=== PATIENT | female | born 1935 | race Caucasian/White ===

== ENCOUNTER 2018-11-13 14:53 | Emergency (ER) | payer MEDICARE, OTHER ==
[~2018-11-13] VITALS: Ht 154.9 cm; Wt 73.0 kg
[~2018-11-13 14:53] MED LIST: CLOP75TA15 PO; LEVO75TA PO; LISI1TAB29 PO; VAL5T PO
--- NOTE | 2018-11-13 15:16 | NUR ---
pt amb with slow steady gait from lobby to room with min assist, Eulalia BARROW at bedside to eval pt
--- NOTE | 2018-11-13 15:58 | NUR ---
pt states fell three weeks ago onto left side with bruise to buttock - noted yellow area to left lower buttock states left side pain pascale her to er today.
[2018-11-13 16:08] LABS: BASOPHILS % (AUTO) 0.5 % (0-1); EOSINOPHILS # (AUTO) 0.2 X10'3 (0-0.9); EOSINOPHILS % (AUTO) 3.1 % (0-6); HEMATOCRIT 40.5 % (35.0-45.0); HEMOGLOBIN 13.5 g/dl (12.0-16.0); LYMPHOCYTES # (AUTO) 2.3 X10'3 (1.1-4.8); LYMPHOCYTES % (AUTO) 37.1 % (21-51); MEAN CORPUSCULAR HEMOGLOBIN 30.8 PG (27.0-31.0); MEAN CORPUSCULAR HGB CONC 33.4 g/dL (33.0-36.5); MEAN CORPUSCULAR VOLUME 92.1 FL (78-98); MEAN PLATELET VOLUME 7.8 FL (7.4-10.4); MONOCYTES # (AUTO) 0.5 X10'3 (0-0.9); MONOCYTES % (AUTO) 8.1 % (2-12); NEUTROPHILS # (AUTO) 3.2 X10'3 (1.8-7.7); NEUTROPHILS % (AUTO) 51.2 % (42-75); PLATELET COUNT 203 X10'3 (140-440); RED CELL DISTRIBUTION WIDTH 13.4 % (11.5-14.5); WHITE BLOOD COUNT 6.2 X10'3 (4.5-11.0)
[2018-11-13 16:20] LABS: ALANINE AMINOTRANSFERASE 51 U/L (12-78); ALBUMIN 3.7 G/DL (3.4-5.0); ALBUMIN/GLOBULIN RATIO 1.2 (1.1-1.5); ALKALINE PHOSPHATASE 42 IU/L (46-116); ANION GAP 9 (8-16); ASPARTATE AMINO TRANSFERASE 30 U/L (10-37); BILIRUBIN,TOTAL 0.4 MG/DL (0.1-1.0); BLOOD UREA NITROGEN 20 MG/DL (7-18); BUN/CREATININE RATIO 20.6 (6.6-38.0); CALCIUM 8.6 MG/DL (8.5-10.1); CHLORIDE 106 MMOL/L (99-107); CREATININE 0.97 MG/DL (0.40-0.90); GLUCOSE 104 MG/DL (70-104); POTASSIUM 3.6 MMOL/L (3.5-5.1); SODIUM 141 MMOL/L (135-145); TOTAL CARBON DIOXIDE 25.8 MMOL/L (24-32); TOTAL PROTEIN 6.8 G/DL (6.4-8.2); eGFR 55 ML/MIN
[2018-11-13] MEDS ORDERED: traMADol 50MG tablet PO ONE (17:00)
[2018-11-13] MEDS ORDERED: TRAM50TA2 PO (17:13)
[2018-11-13 17:16] VITALS: BP 125/59
== END 2018-11-13 17:22 | disposition home or self-care (01) ==
LOC: ER 14:54
DX: M54.5 Low back pain (principal); I10 Essential (primary) hypertension; E03.9 Hypothyroidism, unspecified; M19.90 Unspecified osteoarthritis, unspecified site; Z98.890 Other specified postprocedural states; Z88.6 Allergy status to analgesic agent; Z88.8 Allergy status to other drugs, medicaments and biological substances; Z79.899 Other long term (current) drug therapy; Z86.73 Personal history of transient ischemic attack (TIA), and cerebral infarction without residual deficits
CPT/HCPCS: 36415; 80053; 85025; 99283; 99284

== ENCOUNTER 2019-08-04 19:33 | Inpatient (IN) | payer MEDICARE, OTHER ==
[~2019-08-04] VITALS: Ht 157.5 cm; Wt 66.2 kg
[2019-08-04] MEDS ORDERED: TETanus/Pertussis (Acell)/Diphther VAC/PF (Tdap-Adult) 0.5ml syringe IMVAC ONE (19:50)
[2019-08-04] MEDS ORDERED: LIDOcaine 1% W/epiNEPHrine 1:200,000 10ml vial IJ ONE (19:50)
--- NOTE | 2019-08-04 20:09 | NUR ---
pt in CT
--- NOTE | 2019-08-04 20:30 | NUR ---
pt back from CT and xray, lac to rt side of forehead is oozing blood, pressure applied Desiree Mendes, friend, , call her for ride home
[2019-08-04 20:35] LABS: ALANINE AMINOTRANSFERASE 34 U/L (12-78); ALBUMIN 3.7 G/DL (3.4-5.0); ALKALINE PHOSPHATASE 64 IU/L (46-116); ASPARTATE AMINO TRANSFERASE 23 U/L (10-37); BILIRUBIN,TOTAL 0.2 MG/DL (0.1-1.0); BLOOD UREA NITROGEN 25 MG/DL (7-18); BUN/CREATININE RATIO 26.6 (6.6-38.0); CALCIUM 9.6 MG/DL (8.5-10.1); CREATININE 0.94 MG/DL (0.40-0.90); GLUCOSE 127 MG/DL (70-104); TOTAL CARBON DIOXIDE 30.1 MMOL/L (24-32); TOTAL PROTEIN 7.3 G/DL (6.4-8.2); eGFR 57 ML/MIN
[2019-08-04] MEDS ORDERED: traMADol 50MG tablet PO ONE (20:40)
[2019-08-04 20:44] LABS: ANION GAP 4 (8-16); BASOPHILS # (AUTO) 0.1 X10'3 (0-0.2); BASOPHILS % (AUTO) 0.7 % (0-1); CHLORIDE 104 MMOL/L (99-107); EOSINOPHILS # (AUTO) 0.2 X10'3 (0-0.9); EOSINOPHILS % (AUTO) 2.8 % (0-6); HEMATOCRIT 42.4 % (35.0-45.0); LYMPHOCYTES # (AUTO) 1.6 X10'3 (1.1-4.8); LYMPHOCYTES % (AUTO) 21.2 % (21-51); MEAN CORPUSCULAR HEMOGLOBIN 30.1 PG (27.0-31.0); MEAN CORPUSCULAR HGB CONC 33.1 g/dL (33.0-36.5); MEAN CORPUSCULAR VOLUME 91.1 FL (78-98); MEAN PLATELET VOLUME 8.8 FL (7.4-10.4); MONOCYTES # (AUTO) 0.4 X10'3 (0-0.9); MONOCYTES % (AUTO) 5.9 % (2-12); NEUTROPHILS # (AUTO) 5.2 X10'3 (1.8-7.7); NEUTROPHILS % (AUTO) 69.4 % (42-75); PLATELET COUNT 279 X10'3 (140-440); POTASSIUM 3.3 MMOL/L (3.5-5.1); RED BLOOD COUNT 4.66 X10'6 (4.20-5.60); RED CELL DISTRIBUTION WIDTH 13.9 % (11.5-14.5); SODIUM 138 MMOL/L (135-145); WHITE BLOOD COUNT 7.5 X10'3 (4.5-11.0)
[2019-08-04] MEDS ORDERED: temazepam 15mg capsule PO PRN (21:00)
[2019-08-04] MEDS ORDERED: DOXE10CA2 PO (21:29)
[2019-08-04] MEDS ORDERED: LEVO50TA8 PO (21:29)
[2019-08-04] MEDS ORDERED: morphine 4 MG/ML inj SYRINge IM ONE (21:50)
[2019-08-04] MEDS ORDERED: ondansetron 4mg rapidly disintigrating tab PO ONE (21:50)
[2019-08-04] MEDS ORDERED: potassium CL 10mEq/100ml bag 100 ML IV PRN ×2 (22:25)
[2019-08-04] MEDS ORDERED: magnesium Cl slow-release 64mg tablet PO PRN (22:25)
[2019-08-04] MEDS ORDERED: magnesium 4gm in 100ml NS 100 ML IV PRN (22:25)
[2019-08-04] MEDS ORDERED: potassium Cl 20 mEq SR tablet PO PRN ×2 (22:25)
[2019-08-04] MEDS ORDERED: morphine 2 MG/ML inj. syringe IV PRN (22:25)
[2019-08-04] MEDS ORDERED: magnesium 2GM in 50ml NS 50 ML IV PRN (22:25)
[2019-08-04 22:42] LABS: CLARITY,URINE SLIGHTLY CLOUDY (Clear); COLOR,URINE YELLOW (Yellow); GLUCOSE, URINE NEGATIVE (Neg); KETONES,URINE NEGATIVE (Neg); LEUKOCYTE ESTERASE ,URINE SMALL (Neg); NITRITES, URINE NEGATIVE (Neg); OCCULT BLOOD,URINE NEGATIVE (Neg); PROTEIN,URINE NEGATIVE (Neg); UROBILINOGEN,URINE 0.2 E.U/dL (0.2-1.0)
[2019-08-04 22:46] LABS: UA COLLECTION TYPE OTHER
[2019-08-04 22:54] LABS: BACTERIA,URINE 3+ /HPF (Neg); RBC,URINE 0-2 /HPF (0-2); SQUAMOUS EPITHELIAL CELL,UR MODERATE /LPF (FEW); URINE AMPHETAMINE SCREEN NEGATIVE (Neg); URINE BARBITUATE SCREEN NEGATIVE (Neg); URINE BENZODIAZEPINES SCREEN POSITIVE (Neg); URINE CANNABINOID SCREEN NEGATIVE (Neg); URINE COCAINE SCREEN NEGATIVE (Neg); URINE METHADONE SCREEN NEGATIVE (Neg); URINE OPIATE SCREEN POSITIVE (Neg); URINE PHENCYCLIDINE SCREEN NEGATIVE (Neg)
[2019-08-04 22:56] LABS: MUCUS STRANDS NONE SEEN /LPF (Neg); WBC CLUMPS,URINE FEW /HPF (NEGATIVE)
[2019-08-04] MEDS: normal saline 1000ml 1,000 ML IV SCH (23:34)
[2019-08-05] VITALS: BP 124/70
[2019-08-05 00:05] VITALS: BP_SYST 124; BP_SYST 143; BP_SYST 145; BP_DIAS 70; BP_DIAS 85; BP_DIAS 90
[2019-08-05] MEDS: ondansetron/PF 4mg/2ml inj IV PRN ×2 (01:38→08:22)
[2019-08-05] MEDS: morphine 2 MG/ML inj. syringe IV PRN ×4 (01:38→21:02)
[2019-08-05 04:46] LABS: BASOPHILS # (AUTO) 0.1 X10'3 (0-0.2); BASOPHILS % (AUTO) 0.7 % (0-1); EOSINOPHILS # (AUTO) 0.4 X10'3 (0-0.9); EOSINOPHILS % (AUTO) 3.9 % (0-6); HEMATOCRIT 38.2 % (35.0-45.0); HEMOGLOBIN 12.6 g/dl (12.0-16.0); LYMPHOCYTES # (AUTO) 2.7 X10'3 (1.1-4.8); LYMPHOCYTES % (AUTO) 29.4 % (21-51); MEAN CORPUSCULAR HEMOGLOBIN 30.3 PG (27.0-31.0); MEAN CORPUSCULAR HGB CONC 32.9 g/dL (33.0-36.5); MEAN PLATELET VOLUME 8.4 FL (7.4-10.4); MONOCYTES # (AUTO) 0.8 X10'3 (0-0.9); MONOCYTES % (AUTO) 8.6 % (2-12); NEUTROPHILS # (AUTO) 5.2 X10'3 (1.8-7.7); NEUTROPHILS % (AUTO) 57.4 % (42-75); PLATELET COUNT 242 X10'3 (140-440); RED BLOOD COUNT 4.16 X10'6 (4.20-5.60); WHITE BLOOD COUNT 9.1 X10'3 (4.5-11.0)
[2019-08-05 04:59] LABS: ALANINE AMINOTRANSFERASE 31 U/L (12-78); ALBUMIN 3.2 G/DL (3.4-5.0); ALKALINE PHOSPHATASE 52 IU/L (46-116); ANION GAP 7 (8-16); ASPARTATE AMINO TRANSFERASE 23 U/L (10-37); BILIRUBIN,TOTAL 0.3 MG/DL (0.1-1.0); BLOOD UREA NITROGEN 20 MG/DL (7-18); CALCIUM 8.7 MG/DL (8.5-10.1); CHLORIDE 106 MMOL/L (99-107); CREATININE 0.91 MG/DL (0.40-0.90); GLUCOSE 130 MG/DL (70-104); MAGNESIUM 1.6 MG/DL (1.5-2.4); POTASSIUM 3.7 MMOL/L (3.5-5.1); SODIUM 142 MMOL/L (135-145); TOTAL CARBON DIOXIDE 29.2 MMOL/L (24-32); TOTAL PROTEIN 6.3 G/DL (6.4-8.2); eGFR 59 ML/MIN
--- NOTE | 2019-08-05 06:14 | NUR ---
Problems reprioritized. Patient report given, questions answered & plan of care reviewed with Ayla LYNN. Addendum: 08/05/19 at 0619 by Nohelia James RN Problems reprioritized. Patient report given, questions answered & plan of care reviewed with Queenie LYNN.
[2019-08-05 07:00] VITALS: BP 104/52
[2019-08-05] MEDS: clopidogrel 75mg tablet PO SCH (08:00)
[2019-08-05] MEDS: K and/or MAG REPLACEMENT MC SCH ×2 (08:00→19:00)
[2019-08-05] MEDS: levoTHYROXINE 25mcg tablet PO SCH (08:01)
[2019-08-05] MEDS: docusate sod 100mg capsule PO SCH ×2 (08:01→19:03)
[2019-08-05] MEDS: lisinopril 20mg tablet PO SCH (08:03)
[2019-08-05] MEDS: heparin, porcine 5000 units/ml vial SQ SCH ×2 (08:04→19:03)
[2019-08-05] MEDS: CefTRIAXone/D5W-Rocephin 1gm 50 ML IV SCH (11:52)
[2019-08-05 12:00] VITALS: BP 102/51
[2019-08-05] MEDS: normal saline 1000ml 1,000 ML IV SCH (13:23)
[2019-08-05 18:00] VITALS: BP 105/55
--- NOTE | 2019-08-05 18:23 | NUR ---
Patient in room [facility]. I have received report from Queenie LYNN and had the opportunity to ask questions and assume patient care.
[2019-08-06] VITALS: BP 118/69
[2019-08-06] MEDS: morphine 2 MG/ML inj. syringe IV PRN ×3 (02:10→21:18)
[2019-08-06] MEDS: normal saline 1000ml 1,000 ML IV SCH ×2 (02:59→16:19)
--- NOTE | 2019-08-06 06:15 | NUR ---
Problems reprioritized. Patient report given, questions answered & plan of care reviewed with Queenie LYNN.
[2019-08-06 08:00] VITALS: BP 117/70
[2019-08-06] MEDS: clopidogrel 75mg tablet PO SCH ×2 (08:00→08:42)
[2019-08-06] MEDS: K and/or MAG REPLACEMENT MC SCH ×2 (08:00→20:00)
[2019-08-06 08:17] LABS: BASOPHILS % (AUTO) 0.5 % (0-1); EOSINOPHILS # (AUTO) 0.3 X10'3 (0-0.9); EOSINOPHILS % (AUTO) 4.8 % (0-6); HEMOGLOBIN 12.5 g/dl (12.0-16.0); LYMPHOCYTES # (AUTO) 1.8 X10'3 (1.1-4.8); LYMPHOCYTES % (AUTO) 24.9 % (21-51); MEAN CORPUSCULAR HEMOGLOBIN 30.1 PG (27.0-31.0); MEAN CORPUSCULAR HGB CONC 32.9 g/dL (33.0-36.5); MEAN CORPUSCULAR VOLUME 91.4 FL (78-98); MEAN PLATELET VOLUME 8.4 FL (7.4-10.4); MONOCYTES # (AUTO) 0.5 X10'3 (0-0.9); MONOCYTES % (AUTO) 7.1 % (2-12); NEUTROPHILS # (AUTO) 4.6 X10'3 (1.8-7.7); NEUTROPHILS % (AUTO) 62.7 % (42-75); PLATELET COUNT 221 X10'3 (140-440); RED BLOOD COUNT 4.16 X10'6 (4.20-5.60); RED CELL DISTRIBUTION WIDTH 13.4 % (11.5-14.5); WHITE BLOOD COUNT 7.3 X10'3 (4.5-11.0)
[2019-08-06] MEDS: levoTHYROXINE 25mcg tablet PO SCH (08:42)
[2019-08-06] MEDS: heparin, porcine 5000 units/ml vial SQ SCH ×2 (08:48→21:14)
[2019-08-06] MEDS: lisinopril 20mg tablet PO SCH (08:48)
[2019-08-06] MEDS: CefTRIAXone/D5W-Rocephin 1gm 50 ML IV SCH (08:49)
[2019-08-06] MEDS: docusate sod 100mg capsule PO SCH ×2 (08:49→21:18)
[2019-08-06 08:57] LABS: ALANINE AMINOTRANSFERASE 29 U/L (12-78); ALBUMIN 3.1 G/DL (3.4-5.0); ALBUMIN/GLOBULIN RATIO 0.9 (1.1-1.5); ALKALINE PHOSPHATASE 61 IU/L (46-116); ANION GAP 8 (8-16); ASPARTATE AMINO TRANSFERASE 21 U/L (10-37); BILIRUBIN,TOTAL 0.3 MG/DL (0.1-1.0); BLOOD UREA NITROGEN 16 MG/DL (7-18); BUN/CREATININE RATIO 18.4 (6.6-38.0); CALCIUM 8.1 MG/DL (8.5-10.1); CHLORIDE 106 MMOL/L (99-107); CREATININE 0.87 MG/DL (0.40-0.90); GLUCOSE 144 MG/DL (70-104); MAGNESIUM 1.5 MG/DL (1.5-2.4); POTASSIUM 4.2 MMOL/L (3.5-5.1); SODIUM 139 MMOL/L (135-145); TOTAL CARBON DIOXIDE 24.7 MMOL/L (24-32); TOTAL PROTEIN 6.4 G/DL (6.4-8.2); eGFR 62 ML/MIN
[2019-08-06 11:00] VITALS: BP 128/63
[2019-08-06] MEDS: cephalexin 500mg capsule PO SCH (16:16)
--- NOTE | 2019-08-06 18:30 | NUR ---
Patient in room [facility]. I have received report from MAGY and had the opportunity to ask questions and assume patient care. ASSUMED CARE OF PT WITH RN STUDENT JONA Pinto
[2019-08-06 20:00] VITALS: BP 118/62
[2019-08-07] VITALS: BP 150/76
[2019-08-07] MEDS: cephalexin 500mg capsule PO SCH ×3 (00:28→15:54)
--- NOTE | 2019-08-07 03:35 | NUR ---
Student documentation: I have reviewed and agree with all interventions, assessments performed and documented by JONA Bellamy Medication Administration: For this medication-pass time frame, all medication were reviewed, dispensed, administered and documented per hospital policy by JONA Pinto
[2019-08-07] MEDS ORDERED: HYDROcodone/acetaminophen 5mg/325mg tablet PO ONE (06:00)
--- NOTE | 2019-08-07 06:27 | NUR ---
Problems reprioritized. Patient report given, questions answered & plan of care reviewed with KATELIN.
[2019-08-07] MEDS: normal saline 1000ml 1,000 ML IV SCH (07:37)
[2019-08-07 07:40] VITALS: BP 143/68
[2019-08-07] MEDS: lisinopril 20mg tablet PO SCH (07:43)
[2019-08-07] MEDS: docusate sod 100mg capsule PO SCH ×2 (07:43→21:01)
[2019-08-07] MEDS: levoTHYROXINE 25mcg tablet PO SCH (07:43)
[2019-08-07] MEDS: heparin, porcine 5000 units/ml vial SQ SCH ×2 (07:44→21:01)
[2019-08-07] MEDS: K and/or MAG REPLACEMENT MC SCH ×2 (07:46→20:00)
[2019-08-07 08:06] LABS: BASOPHILS # (AUTO) 0.1 X10'3 (0-0.2); EOSINOPHILS # (AUTO) 0.4 X10'3 (0-0.9); EOSINOPHILS % (AUTO) 7.5 % (0-6); HEMATOCRIT 35.2 % (35.0-45.0); HEMOGLOBIN 11.8 g/dl (12.0-16.0); LYMPHOCYTES # (AUTO) 1.9 X10'3 (1.1-4.8); LYMPHOCYTES % (AUTO) 33.2 % (21-51); MEAN CORPUSCULAR HEMOGLOBIN 30.5 PG (27.0-31.0); MEAN CORPUSCULAR HGB CONC 33.5 g/dL (33.0-36.5); MEAN PLATELET VOLUME 8.7 FL (7.4-10.4); MONOCYTES # (AUTO) 0.5 X10'3 (0-0.9); MONOCYTES % (AUTO) 8.7 % (2-12); NEUTROPHILS # (AUTO) 2.8 X10'3 (1.8-7.7); NEUTROPHILS % (AUTO) 49.6 % (42-75); PLATELET COUNT 205 X10'3 (140-440); RED BLOOD COUNT 3.87 X10'6 (4.20-5.60); RED CELL DISTRIBUTION WIDTH 13.5 % (11.5-14.5); WHITE BLOOD COUNT 5.6 X10'3 (4.5-11.0)
[2019-08-07 08:28] LABS: ALANINE AMINOTRANSFERASE 28 U/L (12-78); ALBUMIN 2.8 G/DL (3.4-5.0); ALBUMIN/GLOBULIN RATIO 0.9 (1.1-1.5); ALKALINE PHOSPHATASE 55 IU/L (46-116); ANION GAP 6 (8-16); ASPARTATE AMINO TRANSFERASE 21 U/L (10-37); BILIRUBIN,TOTAL 0.2 MG/DL (0.1-1.0); BLOOD UREA NITROGEN 15 MG/DL (7-18); BUN/CREATININE RATIO 17.2 (6.6-38.0); CHLORIDE 109 MMOL/L (99-107); CREATININE 0.87 MG/DL (0.40-0.90); GLUCOSE 126 MG/DL (70-104); MAGNESIUM 1.8 MG/DL (1.5-2.4); POTASSIUM 4.2 MMOL/L (3.5-5.1); SODIUM 143 MMOL/L (135-145); TOTAL CARBON DIOXIDE 27.6 MMOL/L (24-32); eGFR 62 ML/MIN
[2019-08-07 11:00] VITALS: BP 127/69
--- NOTE | 2019-08-07 15:59 | NUR ---
PAGER ID: [phone] MESSAGE: Daniel Grigsby [id number]: patient feeling constipated. has no PRNs would you like a milk of mag or stool softner of some kind? thanks saranya, [phone]
[2019-08-07] MEDS: magnesium hydroxide 30ml (MOM) UD suspension PO PRN (16:51)
[2019-08-07] MEDS: HYDROcodone/acetaminophen 5mg/325mg tablet PO PRN (16:52)
--- NOTE | 2019-08-07 18:30 | NUR ---
Problems reprioritized. Patient report given, questions answered & plan of care reviewed with LEAH HANNAH.
--- NOTE | 2019-08-07 19:09 | NUR ---
Initial: Patient presented to ED after ground level fall with facial trauma, has right sided lacerations. recent cholecystectomy at [facility] and s/p biliary stent placement, pending ERCP on for stone extraction all per MD note. Plans to d/c to rehab after admission. Appetite has improved since admission from 25-49% PO to average of 50-75% PO intake for three days, on heart healthy diet. Last bowel movement 08/02, is receiving routine bowel care. Per order history will be NPO after Midnight, pending ERCP tomorrow. Will continue to follow Recommend: 1. continue heart healthy diet 2. routine bowel care 3. weight per rx Addendum: 08/07/19 at [address] Amended: Links added.
[2019-08-07 20:00] VITALS: BP 161/83
[2019-08-07] MEDS ORDERED: docusate sod 100mg capsule PO SCH (20:00)
--- NOTE | 2019-08-07 22:30 | NUR ---
Ice packs provided for right side of face
[2019-08-08] VITALS: BP 149/79
[2019-08-08] MEDS: cephalexin 500mg capsule PO SCH ×3 (00:24→15:28)
[2019-08-08] MEDS: HYDROcodone/acetaminophen 5mg/325mg tablet PO PRN ×3 (03:52→23:11)
[2019-08-08 05:30] LABS: BASOPHILS % (AUTO) 0.8 % (0-1); EOSINOPHILS # (AUTO) 0.5 X10'3 (0-0.9); EOSINOPHILS % (AUTO) 8.3 % (0-6); HEMATOCRIT 37.2 % (35.0-45.0); HEMOGLOBIN 12.4 g/dl (12.0-16.0); LYMPHOCYTES # (AUTO) 1.9 X10'3 (1.1-4.8); LYMPHOCYTES % (AUTO) 31.5 % (21-51); MEAN CORPUSCULAR HGB CONC 33.3 g/dL (33.0-36.5); MEAN CORPUSCULAR VOLUME 90.2 FL (78-98); MEAN PLATELET VOLUME 8.7 FL (7.4-10.4); MONOCYTES # (AUTO) 0.5 X10'3 (0-0.9); NEUTROPHILS # (AUTO) 3.1 X10'3 (1.8-7.7); NEUTROPHILS % (AUTO) 51.4 % (42-75); PLATELET COUNT 246 X10'3 (140-440); RED BLOOD COUNT 4.13 X10'6 (4.20-5.60); RED CELL DISTRIBUTION WIDTH 13.5 % (11.5-14.5)
[2019-08-08 05:41] LABS: ALANINE AMINOTRANSFERASE 31 U/L (12-78); ALBUMIN 3.1 G/DL (3.4-5.0); ALBUMIN/GLOBULIN RATIO 0.9 (1.1-1.5); ALKALINE PHOSPHATASE 60 IU/L (46-116); ANION GAP 8 (8-16); ASPARTATE AMINO TRANSFERASE 24 U/L (10-37); BILIRUBIN,TOTAL 0.4 MG/DL (0.1-1.0); BLOOD UREA NITROGEN 13 MG/DL (7-18); BUN/CREATININE RATIO 15.1 (6.6-38.0); CALCIUM 8.4 MG/DL (8.5-10.1); CHLORIDE 107 MMOL/L (99-107); CREATININE 0.86 MG/DL (0.40-0.90); GLUCOSE 116 MG/DL (70-104); SODIUM 142 MMOL/L (135-145); TOTAL CARBON DIOXIDE 27.3 MMOL/L (24-32); TOTAL PROTEIN 6.6 G/DL (6.4-8.2); eGFR 63 ML/MIN
--- NOTE | 2019-08-08 06:29 | NUR ---
Problems reprioritized. Patient report given, questions answered & plan of care reviewed with LEAH Strauss.
--- NOTE | 2019-08-08 07:00 | NUR ---
Patient in room [facility]. I have received report from Geno Helms and had the opportunity to ask questions and assume patient care.
[2019-08-08] MEDS: lisinopril 20mg tablet PO SCH (07:30)
[2019-08-08] MEDS: HYDROchlorothiazide 25mg tablet PO SCH (07:30)
[2019-08-08] MEDS: levoTHYROXINE 25mcg tablet PO SCH (07:31)
[2019-08-08] MEDS: docusate sod 100mg capsule PO SCH ×2 (07:31→20:02)
[2019-08-08] MEDS: heparin, porcine 5000 units/ml vial SQ SCH (07:35)
[2019-08-08] MEDS: K and/or MAG REPLACEMENT MC SCH ×2 (07:36→20:00)
[2019-08-08 08:00] VITALS: BP 167/85
[2019-08-08 09:46] LABS: PARTIAL THROMBOPLASTIN TIME 27 SECONDS (22-32)
[2019-08-08 10:30] VITALS: BP 166/81
[2019-08-08] MEDS ORDERED: LORazepam 0.5 MG tablet PO PRN (11:00)
--- NOTE | 2019-08-08 17:45 | NUR ---
Student Medication Administration: For this medication-pass time frame, all medication were reviewed, dispensed, administered and documented per hospital policy by Estefania Student Nurse. Student documentation: I have reviewed all interventions, assessments performed and documented by Estefania Student Nurse.
--- NOTE | 2019-08-08 18:00 | NUR ---
Patient in room [facility]. I have received report from Rica LYNN and had the opportunity to ask questions and assume patient care.
--- NOTE | 2019-08-08 18:29 | NUR ---
Problems reprioritized. Patient report given, questions answered & plan of care reviewed with Estefania LYNN.
[2019-08-08 19:00] VITALS: BP 149/81
--- NOTE | 2019-08-08 19:00 | NUR ---
pt refused vs Addendum: 08/08/19 at 2306 by Stewart Blue RN Amended: Links added. Addendum: 08/08/19 at 2307 by Stewart Blue RN wrong patient
[2019-08-08] MEDS: normal saline 1000ml 1,000 ML IV SCH (19:56)
[2019-08-08] MEDS: lactobacillus rhamnosus 10,000 MMU CELLS/CAPSULE PO SCH (20:02)
[2019-08-09] VITALS (15 sets, daily range): BP systolic 95–151; BP diastolic 58–95
[2019-08-09] MEDS: cephalexin 500mg capsule PO SCH ×4 (00:03→23:57)
[2019-08-09] MEDS: morphine 2 MG/ML inj. syringe IV PRN ×2 (01:20→08:38)
[2019-08-09 06:01] LABS: BASOPHILS % (AUTO) 0.8 % (0-1); EOSINOPHILS # (AUTO) 0.5 X10'3 (0-0.9); HEMATOCRIT 36.8 % (35.0-45.0); HEMOGLOBIN 12.3 g/dl (12.0-16.0); LYMPHOCYTES # (AUTO) 2.2 X10'3 (1.1-4.8); LYMPHOCYTES % (AUTO) 36.2 % (21-51); MEAN CORPUSCULAR HEMOGLOBIN 30.3 PG (27.0-31.0); MEAN CORPUSCULAR HGB CONC 33.4 g/dL (33.0-36.5); MEAN CORPUSCULAR VOLUME 90.7 FL (78-98); MEAN PLATELET VOLUME 8.2 FL (7.4-10.4); MONOCYTES # (AUTO) 0.5 X10'3 (0-0.9); MONOCYTES % (AUTO) 8.9 % (2-12); NEUTROPHILS # (AUTO) 2.8 X10'3 (1.8-7.7); NEUTROPHILS % (AUTO) 46.1 % (42-75); PLATELET COUNT 241 X10'3 (140-440); RED BLOOD COUNT 4.06 X10'6 (4.20-5.60); RED CELL DISTRIBUTION WIDTH 13.8 % (11.5-14.5); WHITE BLOOD COUNT 6.1 X10'3 (4.5-11.0)
--- NOTE | 2019-08-09 06:22 | NUR ---
Problems reprioritized. Patient report given, questions answered & plan of care reviewed with Emely LYNN.
[2019-08-09 06:24] LABS: ALANINE AMINOTRANSFERASE 88 U/L (12-78); ALBUMIN 3.1 G/DL (3.4-5.0); ALBUMIN/GLOBULIN RATIO 0.9 (1.1-1.5); ALKALINE PHOSPHATASE 74 IU/L (46-116); ANION GAP 7 (8-16); ASPARTATE AMINO TRANSFERASE 65 U/L (10-37); BILIRUBIN,TOTAL 0.4 MG/DL (0.1-1.0); BLOOD UREA NITROGEN 16 MG/DL (7-18); BUN/CREATININE RATIO 19.3 (6.6-38.0); CALCIUM 8.5 MG/DL (8.5-10.1); CHLORIDE 107 MMOL/L (99-107); CREATININE 0.83 MG/DL (0.40-0.90); GLUCOSE 119 MG/DL (70-104); MAGNESIUM 2.1 MG/DL (1.5-2.4); POTASSIUM 4.1 MMOL/L (3.5-5.1); SODIUM 141 MMOL/L (135-145); TOTAL CARBON DIOXIDE 26.6 MMOL/L (24-32); TOTAL PROTEIN 6.4 G/DL (6.4-8.2); eGFR 65 ML/MIN
--- NOTE | 2019-08-09 06:30 | NUR ---
Patient in room [facility]. I have received report from Estefania LYNN and had the opportunity to ask questions and assume patient care.
[2019-08-09] MEDS: levoTHYROXINE 25mcg tablet PO SCH (07:00)
[2019-08-09] MEDS: HYDROchlorothiazide 25mg tablet PO SCH (08:00)
[2019-08-09] MEDS: docusate sod 100mg capsule PO SCH ×2 (08:00→20:02)
[2019-08-09] MEDS: lactobacillus rhamnosus 10,000 MMU CELLS/CAPSULE PO SCH ×2 (08:00→20:02)
[2019-08-09] MEDS: lisinopril 20mg tablet PO SCH (08:00)
[2019-08-09] MEDS: K and/or MAG REPLACEMENT MC SCH ×2 (08:00→18:57)
[2019-08-09] MEDS ORDERED: iohexol 300 MG/1 ML 50ml polymer ONE (08:41)
[2019-08-09] MEDS ORDERED: fentaNYL/PF 50MCG/1 ML 2ML syringe ONE (08:41)
[2019-08-09] MEDS ORDERED: LIDOcaine Viscous 15ml cup ONE (08:41)
[2019-08-09] MEDS ORDERED: MIDAZolam 5mg/5ml vial ONE (08:41)
[2019-08-09] MEDS ORDERED: glucagon, human recombinant 1mg kit ONE (08:41)
--- NOTE | 2019-08-09 09:55 | NUR ---
Still in the GI lab at the moment
--- NOTE | 2019-08-09 10:35 | NUR ---
Reassessment: Pt pending ERCP per MD notes, currently in GI labs per RN notes. Pt with significant improvement in PO intake documented with recent average 100% PO intake meeting nutrient needs. [facility] 08/07. No nutrition intervention warranted at this time. Will continue to follow. Recommend: 1. continue heart healthy diet 2. routine bowel care 3. weight per rx Addendum: 08/09/19 at [address] Amended: Links added.
[2019-08-09] MEDS: normal saline 1000ml 1,000 ML IV SCH ×2 (15:05→23:57)
--- NOTE | 2019-08-09 17:01 | NUR ---
Patient requesting medicine for cough, Dr. Urban notified via paging system.
[2019-08-09] MEDS ORDERED: guaiFENesin/DM 10ml UD oral syrup PO PRN (17:10)
[2019-08-09] MEDS ORDERED: pseudoephedrine 30mg tablet PO PRN (17:20)
--- NOTE | 2019-08-09 18:09 | NUR ---
Problems reprioritized. Patient report given, questions answered & plan of care reviewed with Eva LYNN.
[2019-08-09] MEDS ORDERED: guaiFENesin 200 MG/10 ML oral syrup UD cup PO PRN ×2 (18:15)
[2019-08-09] MEDS: ondansetron/PF 4mg/2ml inj IV PRN (20:01)
[2019-08-09] MEDS: HYDROcodone/acetaminophen 5mg/325mg tablet PO PRN (20:02)
[2019-08-10] VITALS (11 sets, daily range): BP systolic 114–176; BP diastolic 59–72
[2019-08-10] MEDS: HYDROcodone/acetaminophen 5mg/325mg tablet PO PRN ×3 (05:13→19:17)
[2019-08-10 05:20] LABS: MAGNESIUM 1.9 MG/DL (1.5-2.4)
--- NOTE | 2019-08-10 06:49 | NUR ---
Problems reprioritized. Patient report given, questions answered & plan of care reviewed with Harmony Helm RN.
[2019-08-10] MEDS: K and/or MAG REPLACEMENT MC SCH ×2 (08:00→20:00)
[2019-08-10] MEDS ORDERED: morphine 2 MG/ML inj. syringe IV ONE (08:30)
[2019-08-10] MEDS: levoTHYROXINE 25mcg tablet PO SCH (08:46)
[2019-08-10] MEDS: docusate sod 100mg capsule PO SCH ×2 (08:46→19:17)
[2019-08-10] MEDS: lactobacillus rhamnosus 10,000 MMU CELLS/CAPSULE PO SCH ×2 (08:46→19:17)
[2019-08-10] MEDS: cephalexin 500mg capsule PO SCH ×2 (08:47→18:35)
[2019-08-10] MEDS: HYDROchlorothiazide 25mg tablet PO SCH (08:47)
[2019-08-10] MEDS: lisinopril 20mg tablet PO SCH (08:51)
[2019-08-10 09:00] LABS: ALANINE AMINOTRANSFERASE 507 U/L (12-78); ALBUMIN 3.1 G/DL (3.4-5.0); ALBUMIN/GLOBULIN RATIO 0.9 (1.1-1.5); ALKALINE PHOSPHATASE 154 IU/L (46-116); ANION GAP 10 (8-16); ASPARTATE AMINO TRANSFERASE 407 U/L (10-37); BILIRUBIN,TOTAL 3.4 MG/DL (0.1-1.0); BLOOD UREA NITROGEN 12 MG/DL (7-18); CALCIUM 8.4 MG/DL (8.5-10.1); CHLORIDE 105 MMOL/L (99-107); GLUCOSE 139 MG/DL (70-104); LIPASE < 50 U/L (73-393); SODIUM 138 MMOL/L (135-145); TOTAL PROTEIN 6.4 G/DL (6.4-8.2); eGFR 68 ML/MIN
[2019-08-10] MEDS ORDERED: morphine 2 MG/ML inj. syringe IV PRN (11:45)
[2019-08-10] MEDS: normal saline 1000ml 1,000 ML IV SCH (14:54)
[2019-08-10] MEDS ORDERED: fentaNYL/PF 50MCG/1 ML 2ML syringe ONE (15:23)
[2019-08-10] MEDS ORDERED: MIDAZolam 5mg/5ml vial ONE (15:23)
[2019-08-10] MEDS ORDERED: glucagon, human recombinant 1mg kit ONE (15:24)
[2019-08-10] MEDS ORDERED: LIDOcaine Viscous 15ml cup ONE (15:24)
[2019-08-10] MEDS ORDERED: levoFLOXACIN-Levaquin 500mg/D5 100 ML IV ONE (15:24)
--- NOTE | 2019-08-10 18:52 | NUR ---
Patient in room [facility]. I have received report from Harmony and student RN and had the opportunity to ask questions and assume patient care.
[2019-08-10] MEDS: magnesium hydroxide 30ml (MOM) UD suspension PO PRN (19:17)
[2019-08-11] VITALS: BP 124/58
[2019-08-11] MEDS: cephalexin 500mg capsule PO SCH ×2 (00:28→07:20)
[2019-08-11] MEDS: normal saline 1000ml 1,000 ML IV SCH ×2 (01:46→19:12)
[2019-08-11 05:15] LABS: BASOPHILS % (AUTO) 0.3 % (0-1); EOSINOPHILS # (AUTO) 0.4 X10'3 (0-0.9); EOSINOPHILS % (AUTO) 6.9 % (0-6); HEMATOCRIT 33.3 % (35.0-45.0); HEMOGLOBIN 11.1 g/dl (12.0-16.0); LYMPHOCYTES # (AUTO) 0.7 X10'3 (1.1-4.8); LYMPHOCYTES % (AUTO) 12.6 % (21-51); MEAN CORPUSCULAR HEMOGLOBIN 30.5 PG (27.0-31.0); MEAN CORPUSCULAR HGB CONC 33.4 g/dL (33.0-36.5); MEAN CORPUSCULAR VOLUME 91.3 FL (78-98); MEAN PLATELET VOLUME 8.1 FL (7.4-10.4); MONOCYTES # (AUTO) 0.5 X10'3 (0-0.9); MONOCYTES % (AUTO) 8.4 % (2-12); NEUTROPHILS # (AUTO) 3.8 X10'3 (1.8-7.7); NEUTROPHILS % (AUTO) 71.8 % (42-75); PLATELET COUNT 189 X10'3 (140-440); RED BLOOD COUNT 3.65 X10'6 (4.20-5.60); WHITE BLOOD COUNT 5.4 X10'3 (4.5-11.0)
[2019-08-11 05:36] LABS: ALANINE AMINOTRANSFERASE 286 U/L (12-78); ALBUMIN 2.6 G/DL (3.4-5.0); ALBUMIN/GLOBULIN RATIO 0.9 (1.1-1.5); ALKALINE PHOSPHATASE 131 IU/L (46-116); ANION GAP 5 (8-16); ASPARTATE AMINO TRANSFERASE 146 U/L (10-37); BILIRUBIN,TOTAL 3.3 MG/DL (0.1-1.0); BLOOD UREA NITROGEN 9 MG/DL (7-18); BUN/CREATININE RATIO 12.5 (6.6-38.0); CALCIUM 7.8 MG/DL (8.5-10.1); CHLORIDE 107 MMOL/L (99-107); CREATININE 0.72 MG/DL (0.40-0.90); GLUCOSE 103 MG/DL (70-104); POTASSIUM 3.4 MMOL/L (3.5-5.1); SODIUM 140 MMOL/L (135-145); TOTAL CARBON DIOXIDE 27.6 MMOL/L (24-32); TOTAL PROTEIN 5.6 G/DL (6.4-8.2); eGFR 77 ML/MIN
[2019-08-11 05:39] LABS: LIPASE 1528 U/L (73-393)
--- NOTE | 2019-08-11 06:00 | NUR ---
Patient in room [facility]. I have received report from Erica LYNN and had the opportunity to ask questions and assume patient care.
--- NOTE | 2019-08-11 06:25 | NUR ---
Problems reprioritized. Patient report given, questions answered & plan of care reviewed with Zofia LYNN.
[2019-08-11] MEDS: HYDROchlorothiazide 25mg tablet PO SCH (07:20)
[2019-08-11] MEDS: lactobacillus rhamnosus 10,000 MMU CELLS/CAPSULE PO SCH ×2 (07:20→21:45)
[2019-08-11] MEDS: levoTHYROXINE 25mcg tablet PO SCH (07:20)
[2019-08-11] MEDS: docusate sod 100mg capsule PO SCH (07:21)
[2019-08-11] MEDS: K and/or MAG REPLACEMENT MC SCH ×2 (07:21→19:12)
[2019-08-11] MEDS: HYDROcodone/acetaminophen 5mg/325mg tablet PO PRN ×3 (07:21→23:31)
[2019-08-11] MEDS: lisinopril 20mg tablet PO SCH (07:21)
[2019-08-11 08:00] VITALS: BP 138/72
[2019-08-11] MEDS ORDERED: potassium CL 10mEq/100ml bag 100 ML IV PRN (09:10)
[2019-08-11] MEDS ORDERED: magnesium Cl slow-release 64mg tablet PO PRN (09:10)
[2019-08-11] MEDS ORDERED: potassium Cl 20 mEq SR tablet PO PRN (09:10)
[2019-08-11] MEDS ORDERED: magnesium 4gm in 100ml NS 100 ML IV PRN (09:10)
[2019-08-11] MEDS: potassium Cl 20 mEq SR tablet PO PRN ×3 (09:23→21:45)
[2019-08-11 11:00] VITALS: BP 142/72
--- NOTE | 2019-08-11 17:04 | NUR ---
PAGER ID: [phone] MESSAGE: [phone] Laly Grigsby. IV infiltrated. Pt refusing IV doesn't want to be poked anymore. Pushing fluids tolerating well. [place] [phone]
--- NOTE | 2019-08-11 18:28 | NUR ---
Problems reprioritized. Patient report given, questions answered & plan of care reviewed with Juliana LYNN.
[2019-08-11 20:00] VITALS: BP 157/68
[2019-08-12] VITALS: BP 147/69
[2019-08-12 05:52] LABS: BASOPHILS % (AUTO) 0.5 % (0-1); EOSINOPHILS # (AUTO) 0.5 X10'3 (0-0.9); EOSINOPHILS % (AUTO) 8.3 % (0-6); HEMATOCRIT 35.3 % (35.0-45.0); HEMOGLOBIN 11.7 g/dl (12.0-16.0); LYMPHOCYTES # (AUTO) 1.1 X10'3 (1.1-4.8); LYMPHOCYTES % (AUTO) 18.9 % (21-51); MEAN CORPUSCULAR HGB CONC 33.1 g/dL (33.0-36.5); MEAN CORPUSCULAR VOLUME 90.8 FL (78-98); MEAN PLATELET VOLUME 8.1 FL (7.4-10.4); MONOCYTES # (AUTO) 0.6 X10'3 (0-0.9); MONOCYTES % (AUTO) 10.7 % (2-12); NEUTROPHILS # (AUTO) 3.5 X10'3 (1.8-7.7); NEUTROPHILS % (AUTO) 61.6 % (42-75); PLATELET COUNT 227 X10'3 (140-440); RED BLOOD COUNT 3.88 X10'6 (4.20-5.60); RED CELL DISTRIBUTION WIDTH 14.4 % (11.5-14.5); WHITE BLOOD COUNT 5.7 X10'3 (4.5-11.0)
--- NOTE | 2019-08-12 06:00 | NUR ---
Patient in room [facility]. I have received report from LEAH Andrews and had the opportunity to ask questions and assume patient care.
[2019-08-12 06:20] LABS: ALANINE AMINOTRANSFERASE 227 U/L (12-78); ALBUMIN 2.7 G/DL (3.4-5.0); ALBUMIN/GLOBULIN RATIO 0.8 (1.1-1.5); ALKALINE PHOSPHATASE 161 IU/L (46-116); ANION GAP 4 (8-16); ASPARTATE AMINO TRANSFERASE 108 U/L (10-37); BILIRUBIN,TOTAL 1.8 MG/DL (0.1-1.0); BLOOD UREA NITROGEN 11 MG/DL (7-18); BUN/CREATININE RATIO 15.1 (6.6-38.0); CALCIUM 8.9 MG/DL (8.5-10.1); CHLORIDE 105 MMOL/L (99-107); CREATININE 0.73 MG/DL (0.40-0.90); GLUCOSE 116 MG/DL (70-104); LIPASE 86 U/L (73-393); SODIUM 136 MMOL/L (135-145); TOTAL CARBON DIOXIDE 26.7 MMOL/L (24-32); eGFR 76 ML/MIN
[2019-08-12 07:00] VITALS: BP 136/78
[2019-08-12] MEDS: K and/or MAG REPLACEMENT MC SCH (08:00)
[2019-08-12] MEDS: levoTHYROXINE 25mcg tablet PO SCH (09:09)
[2019-08-12] MEDS: lactobacillus rhamnosus 10,000 MMU CELLS/CAPSULE PO SCH (09:12)
[2019-08-12] MEDS: lisinopril 20mg tablet PO SCH (09:12)
[2019-08-12] MEDS: normal saline 1000ml 1,000 ML IV SCH (09:48)
[2019-08-12 11:00] VITALS: BP 178/96
--- NOTE | 2019-08-12 14:30 | NUR ---
Patient discharged home into the care of daughter Heaven. Patient alert, oriented, and appropriate for discharge. Patient left with all belongings into a private vehicle. Patient will follow up with primary care provider. Patient had no new medications. Patient had no IV, no Tele. Patient signed copy of medicare form, photos taken of facial laceration.
--- NOTE | 2019-08-14 14:47 | NUR ---
Case Management DC follow up: Spoke to pt via telephone s/p Fall, R side face laceration. Reports: "feeling ok, just very tired". No energy. Daughter and son in law w/pt for post DC. Denies: SOB, resp distress, acute/persistent CP, LOPEZ, N/V, blurry vision, emergent general pain, abd tenderness or distention, LOPEZ, blurry vision, vertigo, syncope, fever, unexplained bruising, bleeding. Verbalizes understanding of s/s that would warrant 9-/ER visit for further evaluation. Verbalizes understanding of current/new Rx & why prescribed; taking as ordered, no ase noted r/t polypharmacy. Acknowledges need to follow-up/keep appts w/PCP Lisa. Encouraged pt to call today and relay symptoms of being very tired, no energy and just wanting to go back to bed.Pt agreed to follow up. Questions answered, needs met at DC. No further questions at this time.
== END 2019-08-12 14:25 | disposition home or self-care (01) | DRG 125 ==
LOC: ER 19:33 → ED HOLD 22:23 → SUR 3N 23:10
PROVIDERS: ADMIT Internal Medicine; ATTEND Family Medicine
PROC: 0HQ1XZZ Repair Face Skin, External Approach (ICD-10-PCS; principal; 2019-08-04)
PROC: 0FPB8DZ Removal of Intraluminal Device from Hepatobiliary Duct, Via Natural or Artificial Opening Endoscopic (ICD-10-PCS; 2019-08-09)
PROC: 0FC98ZZ Extirpation of Matter from Common Bile Duct, Via Natural or Artificial Opening Endoscopic (ICD-10-PCS; 2019-08-10)
DX: S01.111A Laceration without foreign body of right eyelid and periocular area, initial encounter (principal); N39.0 Urinary tract infection, site not specified; M48.02 Spinal stenosis, cervical region; E03.9 Hypothyroidism, unspecified; F41.9 Anxiety disorder, unspecified; I12.9 Hypertensive chronic kidney disease with stage 1 through stage 4 chronic kidney disease, or unspecified chronic kidney disease; N18.3 Chronic kidney disease, stage 3 (moderate); K02.9 Dental caries, unspecified; K80.50 Calculus of bile duct without cholangitis or cholecystitis without obstruction; M19.90 Unspecified osteoarthritis, unspecified site; S01.81XA Laceration without foreign body of other part of head, initial encounter; W01.0XXA Fall on same level from slipping, tripping and stumbling without subsequent striking against object, initial encounter; Y93.89 Activity, other specified; Y92.89 Other specified places as the place of occurrence of the external cause; Z88.6 Allergy status to analgesic agent; Z88.8 Allergy status to other drugs, medicaments and biological substances; Y99.8 Other external cause status; Z79.02 Long term (current) use of antithrombotics/antiplatelets; Z86.73 Personal history of transient ischemic attack (TIA), and cerebral infarction without residual deficits; Z90.49 Acquired absence of other specified parts of digestive tract; Z91.81 History of falling
CPT/HCPCS: 12013; 36415; 43262; 43264; 43275; 43277; 70450; 70486; 72125; 72128; 72131; 73130; 73560; 73630; 80053; 80305; 81001; 83690; 83735; 84443; 85025; 85610; 85730; 87081; 87088; 90471; 90715; 93005; 96372; 97110; 97116; 97161; 97530; 99152; 99153; 99285; A4620; C1726; C1769; C1773; G0378; J0696; J1610; J1644; J1956; J2250; J2270; J2405; J3010; J7030; J7040; Q9967